=== PATIENT | female | born 1935 | race Caucasian/White ===

== ENCOUNTER 2016-10-21 01:28 | Inpatient (IN) | payer MEDICARE, OTHER ==
[~2016-10-21] VITALS: Ht 162.6 cm; Wt 81.9 kg
--- NOTE | ~2016-10-21 | ECH ---
Transthoracic Echocardiography Report (TTE) Demographics Patient Name CECE DAWN Date of Study 10/21/2016 Patient Number [id number] Visit Number [id number] Date of 1935 Room Number 421 Accession Number [id number] Gender Female Age 81 year(s) Referring Senia Newell Home Service Director Renee Gan [facility] Physician Physician Interpreting Kath Penn [employer] Paralegal Physician Supervising Ordering Physician Senia Newell MD, MD/MLP Nurse Stress Head Swamper Conclusions Contractility Score Summary Normal Left Ventricular contractility was noted. Summary Technically adequate exam. The estimated left ventricular ejection fraction is 60%. Diastolic assessment reveals Grade I diastolic dysfunction. There is mild aortic regurgitation by color Doppler. Recommendation The patient will be given the results of this study by the physician who ordered the exam. Procedure Type of Study TTE procedure:Echo Complete SF. Procedure Date Date: 10/21/2016 Start: 11:46 AM Technical Quality: Adequate visualization Indications:Tachycardia, Elevated Troponin and Hypertension. Appropriate Use Criteria: 9 Height: 64 inches Weight: 175 pounds BSA: 1.85 m Rhythm: Within normal limits HR: 90 bpm BP: 144/73 mmHg M-Mode/2D Measurements LV Diastolic Dimension: 4.3 cm LV Systolic Dimension: 2.89 cm LV Septum Diastolic: 0.87 cm LV PW Diastolic: 0.89 cm AO Root Dimension: 2.97 cm Cardiac Output: 5.7 l/min LA Dimension: 3.34 cm Cardiac Index: 3.08 l/min*m RV Diastolic Dimension: 3.53 cm LA volume index: 26 ml/m LVOT: 1.86 cm LVOT VTI: 23.31 cm RV Base: 3 cm LV Stroke volume: 63.3 ml RV Mid: 2.1 cm LV Stroke volume index: 34.22 ml/m TAPSE: 2.1 cm TDI-S': 16 cm/s Doppler Measurements AV Peak Velocity: 1.1 m/s MV Peak E-Wave: 0.93 m/s AV Peak Gradient: 4.84 mmHg MV Peak A-Wave: 1.09 m/s AV Mean Gradient: 2.75 mmHg MV E/A Ratio: 0.85 LVOT Peak Velocity: 1.04 m/s MV P1/2t: 31.7 msec AV Area (Continuity):2.57 cm AV P1/2t: 374.8 msec MV Deceleration Time: 109.4 msec TR Velocity:2.74 m/s MV Area (PHT): 6.94 cm TR Gradient:30.03 mmHg PV Peak Velocity: 0.72 m/s Estimated RAP:3 mmHg PV Peak Gradient: 2.08 mmHg Estimated RVSP: 33 mmHg Estimated PASP: 33.03 mmHg E' Septal Velocity: 0.08 m/s A' Septal Velocity: 0.09 m/s E' Lateral Velocity: 0.07 m/s A' Lateral Velocity: 0.11 m/s RA Area: 15.24 cm Findings Left Ventricle Normal left ventricle size and function. Diastolic assessment reveals Grade I diastolic dysfunction. Right Ventricle Normal right ventricle structure and function. Left Atrium Normal left atrial size. Right Atrium Normal right atrial size. Mitral Valve Mild mitral annular calcification. Trivial mitral regurgitation by color Doppler. Aortic Valve The aortic valve is mildly sclerotic. There is mild aortic regurgitation by color Doppler. Tricuspid Valve Normal tricuspid valve structure and function. Mild tricuspid regurgitation by color Doppler. Normal pulmonary pressures. Pulmonic Valve The pulmonic valve is not well visualized. Trivial pulmonic valve regurgitation by color Doppler. Pericardial Effusion No evidence of pericardial effusion. Miscellaneous Visualized portions of the aortic root and ascending aorta appear normal in size. Pleural Effusion No evidence of pleural effusion. Contractility Score LV regional wall motion:(0-Non visualized 1-Normal 2-Hypokinesis 3-Akinesis 4-Dyskinesis 5-Aneurysm) Signature
--- NOTE | 2016-10-23 04:09 | ER ---
ADMIT: 10/21/2016 RM/LOC: 421 [facility] MR#: [id number] [address] [address] CECE DAWN Arcelia [address] [place] [address] Emergency Room Report SEX: F AGE: 81 : 1935 DATE: 10/21/2016 CHIEF COMPLAINT: Productive cough. HISTORY OF PRESENT ILLNESS: The patient is an 81-year-old female, who had a fall 2 weeks ago, fell onto a piece of furniture, hitting the right side of her lower rib cage. She was seen at her primary care physician's office. At that time had a chest x-ray, which apparently did not reveal any abnormalities. She has since had a cough, which has persisted and gotten worse. She actually presented to the ER, approximately 20 hours ago for similar complaints that she comes in now, had a chest x-ray done. It was read as normal and did not have any other workup and was sent home on Levaquin p.o. brings her back in at this time with complaints of progressively worse cough. She does have some pain in her right lower lateral chest, which is worse with coughs and certain movements, but otherwise does not have any other pressure or chest pain. She denies any fevers or chills. REVIEW OF SYSTEMS: Ten-point review of systems is done and otherwise negative. PAST MEDICAL HISTORY: Significant for hypertension. PAST SURGICAL HISTORY: Hysterectomy, appendectomy, and thyroidectomy. MEDICATIONS: See nurse's note. ALLERGIES: SULFA. SOCIAL HISTORY: Denies smoking, drug use. Does use alcohol occasionally. PHYSICAL EXAMINATION: See T-sheet for complete physical exam. Focal examination of the lungs reveals she is not in any respiratory distress. She does have some mild rhonchi in her right base, but is quite difficult to auscultate her lungs as whenever she takes even a moderate deep breath, she begins coughing quite vigorously. CT chest shows atelectasis of right base, otherwise unremarkable. CBC shows a slightly elevated white count of 11.3, otherwise normal. Chemistries were unremarkable. INR is 1.07, lactic acid 0.8, procalcitonin less than 0.05. CK is 190, MB of 2.0, troponin 0.062. Urinalysis shows 1+ leukocytes and 21 white blood cells. EKG shows sinus rhythm, rate of 96. No ST elevation or signs of acute GA. EMERGENCY DEPARTMENT COURSE: Due to the patient's worsening cough even throughout the course of the day today, I did go ahead and do a more substantial workup including the sepsis routine for concern of possible pneumonia. Her labs show she does have a slightly elevated troponin with a ADMIT: 10/21/2016 RM/LOC: 421 [facility] MR#: [id number] [address] [address] CECE DAWN [address] [place] [address] Emergency Room Report SEX: F AGE: 81 : 1935 white count of 11.3. Her CT of her chest shows some atelectasis, otherwise unremarkable. She did get albuterol in the emergency department, which she states slightly improved her symptoms, but the patient and her do not believe she is safe to go home at this time. I spoke to Dr. Boggs, who is on for the patient's primary care physician, Dr. Conn, and we will admit the patient at this time for further management of her cough and to further evaluate her slight elevation in her troponin. Admitted in stable condition. DIAGNOSES: 1. Cough. 2. Elevated troponin. 3. Right chest wall contusion. Pradeep Chaves MD/ josemanuel JOB #: [id number] CC: Raul Conn MD, Attending Physician Raul Conn MD, Family Physician
--- NOTE | 2016-10-23 07:26 | CO ---
ADMIT: 10/21/2016 RM/LOC: 421 [facility] MR#: [id number] [address] [place] [id number] CECE DAWN [address] [place] [address] Consultation SEX: F AGE: 81 : 1935 DATE OF CONSULTATION: 10/22/2016 ATTENDING PHYSICIAN: Raul Conn CONSULTING PHYSICIAN: Buck Perry MD PRIMARY PHYSICIAN: Dr. Conn. CHIEF COMPLAINT: Abnormal thyroid. HISTORY OF PRESENT ILLNESS: Ms. Dawn is an 81 years old. She was admitted to the hospital at this time with cough and respiratory infection. Hospital evaluation has included thyroid function tests, which shows normal T3 and T4 levels, but an elevated TSH at 13. She is long-standing hypothyroid following right thyroid lobectomy many years ago (benign) and takes levothyroxine 100 mcg daily. She has symptoms of being tired much of the time, which may indicate a low thyroid level. Her ultrasound of the thyroid is abnormal as a predominant inflammatory appearance. There is some asymmetry, but she has had a portion of the right thyroid lobe removed many years ago. She does not have an overt neoplastic appearance although the right lobe has a nodular appearance that is hyperechoic, which I believe is likely inflammatory and postop rather than neoplastic. Physical exam of her neck shows the left thyroid lobe to be palpable, but essentially normal size. There is no tenderness. There is no distinct nodules in the right or left thyroid bed and no adenopathy. IMPRESSION: 1. Hypothyroid as evidenced by elevated TSH. 2. Euthyroid as evidenced by a normal T3 and T4 levels, presently on levothyroxine 100 mcg daily. ADMIT: 10/21/2016 RM/LOC: 421 [facility] MR#: [id number] [address] [place], [place] [id number] CECE DAWN [address] [place] [address] Consultation SEX: F AGE: 81 : 1935 3. 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 RECOMMENDATION: I did not feel biopsy or surgical treatment needed at least at this point in time. Because of the elevated TSH, may consider increasing her levothyroxine dose to 112 mcg daily and recheck TSH in six weeks as TSH reduces to normal level. We would reassess her symptoms to see if it helps with her feeling of tiredness. Concerning the ultrasound of the thyroid, I would recommend recheck in 4 to 6 months to assure there is no enlargement during this period of time and if change is noted, biopsy may need to be reconsidered. Buck Perry MD/ josemanuel JOB #: [id number] CC: Raul Conn, Attending Physician Raul Conn, Family Physician
[2016-10-24] MEDS ORDERED: LEVAQUIN DPS750 MG PO (12:02)
[2016-10-24] MEDS ORDERED: SYNTHROID112 MCG PO (12:02)
[2016-10-24] MEDS ORDERED: DETROL LA DPS4 MG PO (12:02)
[2016-10-24] MEDS ORDERED: NORVASC2.5 MG PO (12:02)
[2016-10-24] MEDS ORDERED: TRIMPEX DPS100 MG PO (12:03)
[2016-10-24] MEDS ORDERED: TESSALON PERLE100 M1 PO (12:03)
[2016-10-24] MEDS ORDERED: OYSTER SHELL C500 MG PO (12:03)
[2016-10-24] MEDS ORDERED: MUCINEX600 MG PO (12:04)
[2016-10-24] MEDS ORDERED: PROAIR HFA8.5 GM IH (12:04)
[2016-10-24] MEDS ORDERED: DELTASONE DPS20 MG PO (12:04)
[2016-10-24] MEDS ORDERED: ASA CHILDREN'S81 MG PO (12:04)
--- NOTE | 2016-10-24 13:57 | HP ---
ADMIT: 10/22/2016 RM/LOC: 421 [facility] MR#: [id number] [address] [address] LÓPEZ CECE J [address] [place] [address] History and Physical SEX: F AGE: 81 : 1935 DATE OF SERVICE: CHIEF COMPLAINT: Cough. HISTORY OF PRESENT ILLNESS: This is an 81-year-old female, who is here with a 4-day history of cough, sore throat, clear runny nose. She was actually seen at outpatient clinic, given Levaquin, but she did not take it. She initially denied any fevers or chills or chest pain or shortness of breath but in the emergency room, she had lots of coughing and noted that she had fallen onto her side, not too long ago, and this gave her pain in her chest, fell onto the right side of her chest though. Said she was here recently, the day prior to admission, had an x-ray and it was read as negative for any pneumonia or pulmonary contusion. She did have a question of whether this was a right lower lobe infiltration; however, she was seen in the ER on the and given Levaquin and then discharged home. However, she presented back on the with continued coughing in the middle of the night and feeling worse. She started coughing up more phlegm and having a little pain as well. She was coughing so much that she had difficulty catching her breath, so that is what brought her back. PAST MEDICAL HISTORY: Significant for: 1. Balance problems. 2. Hypertension. 3. Chronic fatigue. 4. History of UTI. 5. Hyperlipidemia. 6. Hypothyroidism. 7. Osteopenia. 8. Urinary incontinence. MEDICATIONS: 1. Amlodipine 2.5 mg daily. 2. Detrol LA 4 mg daily. 3. Tessalon Perles. 4. Levothyroxine 100 mcg daily. 5. Zestril 40 mg daily. 6. Lisinopril/hydrochlorothiazide 20/12.5. 7. Trimethoprim 100 mg daily. 8. She also has a prescription for Levaquin at home. IMMUNIZATIONS: She had a Prevnar in 2014, Pneumovax in 2011, Tdap in 2012, and Zostavax in 2012. FAMILY HISTORY: Father had stroke, mother had type of cancer, they are both . SOCIAL HISTORY: She has been never a smoker. Nondrinker. She is . REVIEW OF SYSTEMS: Other complete review of systems was obtained and negative ADMIT: 10/22/2016 RM/LOC: 421 [facility] MR#: [id number] [address] [address] LÓPEZ CECE J [address] [place] [address] History and Physical SEX: F AGE: 81 : 1935 except as above. PHYSICAL EXAMINATION: VITAL SIGNS: Temp 98.1, pulse 90, respirations 17, blood pressure 144/73, oxygen saturation 92% on room air. GENERAL: A well-appearing 81-year-old female. She is in no apparent distress. She is alert. She is oriented. HEENT: Head is atraumatic, normocephalic. Pupils are equal, round, and reactive to light and accommodation. She is wearing glasses. Throat is clear. NECK: Supple. HEART: Regular rate and rhythm without any murmurs. LUNGS: Diffuse wheezes and rhonchi bilaterally. Some crackles in the right lower lobe. ABDOMEN: Soft, without any tenderness. EXTREMITIES: Lower extremities have nonpitting bilateral edema. She can move all extremities equally bilaterally. She does have some poor balance, which is chronic for her. She has gross weakness on her lower extremities and upper extremities that are rated about 4+ out of 5. NEURO: Cranial nerves are intact. LABORATORY AND X-RAY DATA: White count 11.3, hemoglobin 12.2, platelets of 152. Lactic acid 0.8. CMP was normal with a troponin of 0.062. CK was normal. INR was normal. Procalcitonin less than 0.05. ASSESSMENT: 1. Right lower lobe pneumonia. 2. Elevated troponin. 3. Generalized weakness. 4. Urinary tract infection. 5. History of hypothyroidism. PLAN: The patient will be admitted to the hospital. She will be put on some antibiotics. She has already been given Zosyn. We will evaluate her for any swallowing issues. Check an echo for an elevated troponin. We may need Cardiology to see her if this persists. Continue her amlodipine, levothyroxine, and aspirin for now. Hold other medicines. Do PT and OT for strengthening, and we will see how she does over the next 24-48 hours. Raul Conn MD/ josemanuel JOB #: [id number] CC: Raul Conn, Attending Physician Raul Conn, Family Physician
--- NOTE | 2016-10-25 06:57 | DS ---
ADMIT: 10/22/2016 RM/LOC: 421 [facility] MR#: [id number] [address] [address] CECE DAWN Arcelia [facility] [place] [address] General Discharge Summary SEX: F AGE: 81 : 1935 ADMISSION DATE: 10/22/2016 DISCHARGE DATE: 10/23/2016 FINAL DIAGNOSES: 1. Right lower lobe pneumonia. 2. Elevated troponin. 3. Generalized weakness. 4. Urinary tract infection. 5. Cough. 6. Elevated TSH with enlargement and heterogeneity of the left thyroid lobe, question of thyroiditis, normal T4 and T3. 7. Hypertension. 8. Hypothyroidism. REASON FOR ADMISSION: See dictated H and P. Briefly, this is an 81-year-old female who presented with cough. She had failed outpatient therapy. HOSPITAL COURSE: She was admitted and it looked like she had a right lower lobe pneumonia. She had fallen and hit her right side of her ribs pulmonary contusion with associated pneumonia there. Throughout her hospitalization, she had some wheezing and rhonchi in her lungs. They started to improve. She was improved much quite a bit on the . She was requesting to go home. She still had frequent cough and some productivity with it. She had a little bit of rhonchi and rales on the day of discharge without near the amount of wheezes. She moved her air very well. DISCHARGE INSTRUCTIONS: 1. Aspirin 81 mg daily. 2. Norvasc 2.5 mg daily. 3. Synthroid 0.112 mg daily, we will call in a new prescription for her. 4. She will be on her regular tolteradine tartrate ER 4 mg daily. 5. Levaquin 750 mg daily for 5 days. She should have a home supply of this. 6. She will hold her trimethoprim while she is on Levaquin. 7. Calcium 500 mg b.i.d. 8. She has Tessalon Perles one t.i.d. p.r.n. at home she can use as well. 9. ProAir inhaler 1-2 puffs q.i.d. p.r.n. 10.Prednisone 40 mg daily x5 days. 11.Mucinex 600 mg b.i.d. for 7 days. She will have a regular diet. Follow up with me in less than 1 week's time. She will follow up with a Lexdileepan in 3-4 weeks for the elevated troponin. Raul Conn MD/ milil JOB #: [id number] CC: Raul Conn MD, Attending Physician ADMIT: 10/22/2016 RM/LOC: 421 [facility] MR#: [id number] [address] [place] [id number] CECE DAWN [address] [place] [address] General Discharge Summary SEX: F AGE: 81 : 1935 Raul Conn MD, Family Physician
--- NOTE | 2016-11-20 16:58 | CO ---
ADMIT: 10/21/2016 RM/LOC: 421 [facility] MR#: [id number] [address] [address] LÓPEZ CECE J [facility] [place] [address] Consultation SEX: F AGE: 81 : 1935 DATE OF CONSULTATION: 10/22/2016 ATTENDING PHYSICIAN: Raul Conn CONSULTING PHYSICIAN: Fili Stockton MD REASON FOR CONSULTATION: Elevated troponin. HISTORY OF PRESENT ILLNESS: The patient is a pleasant 81-year-old, female with no known history of coronary artery disease. She did have a negative stress test in 2014. She is here with cough, shortness of breath for the last 4-5 weeks. She also has a mild elevation in her troponin and therefore, we were asked to consult. She denies any chest pain, tightness, or heaviness. Her troponin peak was 0.062. She does have shortness of breath with activity and some swelling of her lower extremities, but this is stable for her. She has some presyncope when she coughs. PAST MEDICAL HISTORY: Urinary incontinence, osteopenia, hypothyroidism, adenoidectomy, hysterectomy, oophorectomy, bilateral cataract extractions, subtotal right thyroidectomy and tonsillectomy, PVCs, and hypertension. MEDICATIONS: She is taking include: 1. Norvasc 2.5 mg p.o. daily. 2. Synthroid 0.1 mg p.o. daily. 3. She is getting Zosyn while here in the hospital. 4. She also takes aspirin 325 mg one daily p.r.n. 5. Calcium 500 mg p.o. b.i.d. 6. Benzoate 100 mg one capsule t.i.d. p.r.n. 7. Tolterodine tartrate 4 mg daily. 8. She was on trimethoprim and Levaquin at home. ALLERGIES: SULFA. REVIEW OF SYSTEMS: GENERAL: She has had some chills. Again, she has a cough productive of hemoptysis x1. Otherwise, it is usually nonproductive. She has some trouble swallowing pills and has had some diarrhea off and on. EYES: She wears corrective lenses. ENT: Denies hearing loss or problems with nose, mouth or throat. PULMONARY: Denies cough, sputum production, asthma, emphysema or bronchitis. Denies snoring loudly, wakefulness at night, or fatigue upon awakening. GASTROINTESTINAL: Denies heartburn or difficulty swallowing. No change in bowel habits. Denies dark or bloody stools. No history of ulcers, hiatal hernia, or gallbladder or liver disease. GENITOURINARY: Denies dysuria, hematuria, nocturia, urinary tract infection, or kidney stones. Denies history of renal insufficiency or failure. MUSCULOSKELETAL: She does have osteoarthritis. ENDOCRINE: Denies history of thyroid dysfunction or diabetes. HEMATOLOGIC: Denies history of anemia, easy bruising, or cancer. NEUROLOGIC: Denies chronic headaches, dizziness, syncope, stroke, seizures or ADMIT: 10/21/2016 RM/LOC: 421 [facility] MR#: [id number] [address] [place] [id number] CECE DAWN [address] [place] [address] Consultation SEX: F AGE: 81 : 1935 numbness or tingling. PSYCHIATRIC: Denies history of mental illness or feelings of depression. FAMILY HISTORY: No family history of premature coronary artery disease. She does have a family history of cancer and stroke. SOCIAL HISTORY: She is . Her is here in the room with her today. She does not smoke. PHYSICAL EXAMINATION: Per Dr. Stockton: VITAL SIGNS: Temp 98.6, pulse 109, respirations 18, blood pressure 127/59, O2 saturation 92%. SKIN: [place], warm and dry. EYES: Sclerae clear. No xanthelasmas. ENT: Oral mucosa is pink and moist. No jugular venous distention or carotid bruits. CHEST: Respirations are even and unlabored. LUNGS: Coarse breath sounds. HEART: Regular rate and rhythm. Normal S1, S2. No murmurs, rubs or gallops. ABDOMEN: Soft and nontender. MUSCULOSKELETAL: Gait is normal. EXTREMITIES: 1+ edema. PSYCHIATRIC: Alert and oriented. Mood and affect are appropriate. DIAGNOSTIC DATA: EKG does not show any acute ST-T wave changes. Chest x-ray shows cardiomegaly without decompensation. Bibasilar appears to be similar in appearance, antecedent granulomatous disease. Blood cultures are no growth to date. An echocardiogram shows an EF of 60%, grade 1 diastolic dysfunction, mild aortic regurgitation, no wall motion abnormalities. LABORATORY DATA: Sodium of 136, potassium 3.5 with a chloride of 103, carbon dioxide 26, BUN of 8, glucose 95, creatinine 0.6, calcium 8.3, GFR of 85. White blood count of 7.1 with red blood count of 4.32, hemoglobin 11.7, hematocrit 36.3, platelet count of 149. Cardiac enzymes; CK of 191, 198 and 223. MB of 2.0, 3.1, and 3.6 with a troponin of 0.062, 0.047, and 0.050. ASSESSMENT: Per Dr. Stockton: 1. Indeterminate troponin. 2. Cough/pneumonia. 3. Supraventricular tachycardia. 4. Elevated TSH. ADMIT: 10/21/2016 RM/LOC: 421 [facility] MR#: [id number] [address] [place] [phone] CECE DAWN [address] [place] [address] Consultation SEX: F AGE: 81 : 1935 5. Hypertension. PLAN: Per Dr. Stockton. Her indeterminate troponin is likely secondary to demand. I recommend an echocardiogram to assess left ventricular function and to assess for any valvular abnormalities. Her EKG shows nonspecific ST-T wave changes. Since her echocardiogram looks okay, we will plan on a stress test. She has had short bursts of SVT. We will continue to monitor these on telemetry and increase her Norvasc for blood pressure support. We will also check a fasting lipid profile. Upon dismissal, she will be scheduled for a Lexiscan nuclear stress test in 3-4 weeks after her cough resolves. Thank you for allowing us to participate in the care of this patient. SARAH Dumas / Fili Stockton MD / josemanuel JOB #: [id number] CC: Raul Conn, Attending Physician Raul Conn, Family Physician
== END 2016-10-23 18:15 | disposition home or self-care (01) | DRG 194 ==
LOC: ER 01:28 → 4PCU 05:15
PROVIDERS: ADMIT Internal Medicine
DX: J18.1 Lobar pneumonia, unspecified organism (principal); N39.0 Urinary tract infection, site not specified; I47.1 Supraventricular tachycardia; I10 Essential (primary) hypertension; S20.211A Contusion of right front wall of thorax, initial encounter; W19.XXXA Unspecified fall, initial encounter; R13.10 Dysphagia, unspecified; E78.5 Hyperlipidemia, unspecified; M85.80 Other specified disorders of bone density and structure, unspecified site; R32 Unspecified urinary incontinence; R79.89 Other specified abnormal findings of blood chemistry; E89.0 Postprocedural hypothyroidism; E06.3 Autoimmune thyroiditis; Z87.440 Personal history of urinary (tract) infections